=== PATIENT | male | born 1975 | race Caucasian/White ===

== ENCOUNTER → 2018-05-25 | Outpatient (CLI) | payer OTHER | LOC: RAD 11:31 | PROVIDERS: ATTEND Family Medicine | DX: Z02.9 Encounter for administrative examinations, unspecified (principal) ==

== ENCOUNTER 2019-02-18 14:45 | Emergency (ER) | payer OTHER ==
[~2019-02-18] VITALS: Ht 185.4 cm; Wt 118.0 kg
--- NOTE | 2019-02-18 14:59 | NUR ---
pt pedroa from [facility]; c/o anxiety and intermittent left sided cp radiating to left arm x 2 months, worse today. ekg taken on arrival. pt attached to all montiors. pt given 1 mg versed and 424 mg asa prior to arrival. pt is a&o, resps even and unlabored, nsr on threat monitoring analyst rate 80-90s with no ectopy. at bedside. KRIS Maldonado at bedside.
[2019-02-18] MEDS ORDERED: LORazepam 2 MG/ML, 1ML ONE (15:07)
[2019-02-18] MEDS ORDERED: LORazepam 2 MG/ML, 1ML IVPush ONE (15:30)
--- NOTE | 2019-02-18 15:30 | NUR ---
pt sleeping on gurney, resps even and unlabored, nadn.
[2019-02-18 16:18] VITALS: BP 124/74
--- NOTE | 2019-02-18 16:24 | NUR ---
pt given dc instructions and script. pt educated regarding dc rx for ativan. pt educated not to drive today d/t meds given. piv dc'd with tip intact. pt amb to dc desk with who is to drive him home. pt is a&ox4, resps even and unlabored, gait steady. pt reports sx completely resolved. nadn at dc.
== END 2019-02-18 16:25 | disposition home or self-care (01) ==
LOC: ED 15:20
DX: F41.1 Generalized anxiety disorder (principal); R07.89 Other chest pain; E78.00 Pure hypercholesterolemia, unspecified
CPT/HCPCS: 36415; 84484; 93005; 96374; 99284; J2060